=== PATIENT | female | born 1980 | race Caucasian/White ===

== ENCOUNTER 2019-12-02 08:17 | Outpatient (CLI) | payer OTHER ==
--- NOTE | 2019-12-02 10:53 | MRI ---
MRI LUMBAR SPINE WITHOUT CONTRAST: INDICATION: Low back pain. FINDINGS: The lumbar vertebrae maintain normal height and alignment. Vertebral body signal is normal. The dis k spaces are preserved. No significant disk bulge or disk protrusion seen at L1-2, L2-3, or L3-4. Mild facet arthrosis at th shorty levels; however, no central canal or foraminal stenosis. At L4-5, there is a small central disk protrusion which flattens the anterior thecal sac. There is a n extruded disk paracentrally on the right with inferior migration. This small extruded fragment karlos sures approximately 8 mm AP dimension in the axial plane and is just inferior to the disk into the ri ght subarticular zone/lateral recess. It does displace the traversing right L5 nerve root. There is facet arthrosis and mild central canal stenosis at the disk level. At L5-S1, there is a high-intensity zone signal seen in the posterior disk margin consistent with mikel ular fissure. There is a small central disk protrusion which does not impinge on the thecal sac and does not appear to impinge on or displace either of the traversing S1 nerve roots. There is mild fac et arthritis. No central canal or foraminal stenosis. IMPRESSION: 1. Disk protrusion centrally and to the right at L4-5 with an extruded fragment on the right demonst rating inferior migration into the right lateral recess displacing the traversing right L5 nerve niecy t. This small fragment measures approximate 8 mm AP dimension as described above. 2. There is annular fissure at L5-S1 with small central protrusion as described. POS: AH
== END 2019-12-02 08:18 | disposition home or self-care (01) ==
LOC: BICMRI 08:17
PROVIDERS: ATTEND Neurological Surgery
DX: M51.16 Intervertebral disc disorders with radiculopathy, lumbar region (principal); M51.17 Intervertebral disc disorders with radiculopathy, lumbosacral region; Q05.7 Lumbar spina bifida without hydrocephalus
CPT/HCPCS: 72148